=== PATIENT | male | born 1995 | race Caucasian/White ===

== ENCOUNTER → 2018-05-08 11:06 | Day surgery (SDC) | payer OTHER ==
[~2018-05-08 11:06] MED LIST: Atropine 1MG/ML INJ* 1 ML VIAL ONE; Buffered Lidocaine 1% SYRIN* 1 ML/SYRINGE INTRADERM ONE; Bupivacaine 0.5%* 50 ML VIAL ONE; Dexamethasone IV* 4 MG/ML 1 ML (4 MG) IV SLOW PU ONE; Dexamethasone IV* 4 MG/ML 1 ML (4 MG) ONE; DiMENhydriNATE IV* 50 MG/ML VIAL IV PUSH PRN; Famotidine IV* 10 MG/ML 2 ML (20 mg) IV ONE; Famotidine IV* 10 MG/ML 2 ML (20 mg) ONE; Ketorolac INJ* 30 MG/ML 1 ML VIAL ONE; Lactated Ringers 1000 ML Bag* 1,000 ML IV SCH; Lidocaine 2% PF * 5 ML VIAL ONE; Midazolam* 1 MG/ML 5 ML VIAL (5 MG) ONE; Naloxone* 0.4 MG/ML 1 ML VIAL IV PRN; Ondansetron INJ* 2 MG/ML VIAL IV PRN; Ondansetron INJ* 2 MG/ML VIAL ONE; Propofol* 10 MG/ML 20 ML BTL ONE; ceFAZolin 2 GM PREMIX in ORs 2 GM/50 ML BAG IVPB ONE; fentaNYL* 50 MCG/ML 2 ML VIAL (100 MCG VIAL) IV PRN; fentaNYL* 50 MCG/ML 2 ML VIAL (100 MCG VIAL) ONE; oxyCODONE/Acetamin 5/325 MG* TAB PO PRN
[2018-05-08 16:19] VITALS: BP 136/72
--- NOTE | 2018-05-10 20:58 | OP ---
OPERATIVE REPORT: DATE OF OPERATION: 05/08/18 DATE OF : 89 SURGEON: Ganga Marcelo MD INORGANIC CHEMIST: HARRISON Sanches. ANESTHESIOLOGIST: Dr. Nguyen. ANESTHESIA: General anesthesia. PRE-OP DIAGNOSIS: Left thumb metacarpal base epibasal fracture POST-OP DIAGNOSIS: Left thumb metacarpal base epibasal fracture OPERATIVE PROCEDURE: Closed reduction percutaneous pinning, left thumb metacarpal base. ANTIBIOTICS: Ancef 2 g IV. IV FLUIDS: See anesthesia note. SKIN TO SKIN TIME: 54 minutes. RADIATION EXPOSURE: Mini C-arm, 85.08 mGy. SPECIMEN: None. IMPLANTS: K-wires, each 0.045 in size x3. COMPLICATIONS: None. ESTIMATED BLOOD LOSS: Minimal. INDICATIONS FOR THE PROCEDURE: The patient is a 23-year-old man, right-hand dominant, senior at [employer], originally from [place], who sustained an injury to his left thumb five days preoperatively on 05/03/18 while snowboarding. X-rays at [facility] and then in my clinic on 05/05/18 demonstrated an extraarticular epibasilar fracture of the thumb metacarpal with approximately 30 degrees of angulation. The patient opted for surgery. Discussed with the patient risks and potential complications of surgery. The patient opted to go forward with surgery. DESCRIPTION OF PROCEDURE: In preoperative holding, the patient signed a written consent. Operative extremity was marked in the preoperative holding. The patient's thumb spica short arm cast was removed in preoperative holding. The patient was taken back to the operating room on his stretcher. The patient was sedated and intubated by Dr. Nguyen. Hand table was attached to the table in the operating room. Mini time-out was performed. I brought the mini C-arm in and manipulated the left thumb, improving the reduction at the fracture site. We prepped and draped the left upper extremity. A forearm tourniquet had been placed prior to prep and drape although that was never elevated. Surgical time-out was performed. Reduction was performed. I viewed the thumb with a true lateral view of the metacarpal as well as AP and PA views. I placed a K-wire through the skin and into the radial aspect of the base of the thumb metacarpal. I passed it obliquely across to the distal ulnar aspect of the metacarpal shaft. This held the reduction nicely. However, the pin distally went all the way to the thumb MCP joint. I backed it up so that it was deep to subchondral bone, but I held reduction nicely. I next went about obtaining distal to proximal fixation with the K-wire. The second K-wire was the most difficult to place. I placed it from the distal radial aspect of the shaft, obliquely oriented in an ulnar direction and proximal. I had the K-wire go through the base of the metacarpal into the trapezium and I embedded it in the proximal subchondral bone of the trapezium. I placed a third K-wire from dorsal distal through the shaft across the fracture site into the base of the metacarpal and into the trapezium lodging it in the proximal subchondral bone. I pulled back that first pin I placed even more to keep it safely clear off the thumb MCP joint. Final x-rays were obtained showing excellent near anatomic or anatomic reduction at the fracture site. Significant robust fixation with these 3 K- wries placed. Each of the K-wires were bent and cut outside the skin. Caps were placed at the end of the each one of them. Some local anesthetic was placed into the subcutaneous tissue prior to the placement of the splint. Prior to placement of dressing, I placed digital nerve blocks on the left thumb with 9 cc of Marcaine without epinephrine, 0.25% . I used 4 cc of this solution to perform a digital nerve block on the right index finger. Xeroform, 4x4s, fluffy dressing, Kerlix, Webril were placed. The patient was placed in a radial gutter splint using plaster which was overwrapped with an Shlomo bandage. The patient was awakened and extubated. Transferred to the PACU. The patient was placed on a 7-day course of Keflex to prevent infection and Percocet to take as needed for pain control. DISPOSITION: The patient will follow up with me in clinic this week for inspection of the pins and placement of a short arm cast with thumb spica extension. The patient will have the K-wires in for 4 weeks and then they will be removed in the clinic. [id number]/CPS #: [id number] MTDD
== END | disposition home or self-care (01) ==
LOC: OR 11:06
PROVIDERS: ATTEND Orthopaedic Surgery
DX: S62.202A Unspecified fracture of first metacarpal bone, left hand, initial encounter for closed fracture (principal); Y93.23 Activity, snow (alpine) (downhill) skiing, snowboarding, sledding, tobogganing and snow tubing
CPT/HCPCS: C1776; J0461; J0690; J1100; J1885; J2250; J2405; J2704; J3010